=== PATIENT | female | born 1995 | race Hispanic/Latino ===

== ENCOUNTER 2017-09-03 17:32 | Outpatient (CLI) | payer MEDICAID | END 2017-09-03 18:20 | disposition home or self-care (01) | LOC: TRG 17:32 | PROVIDERS: ATTEND Obstetrics & Gynecology | DX: O47.1 False labor at or after 37 completed weeks of gestation (principal); Z3A.37 37 weeks gestation of pregnancy ==

== ENCOUNTER 2017-09-12 17:57 | Outpatient (CLI) | payer MEDICAID ==
[2017-09-12 18:58] VITALS: BP 98/55
== END 2017-09-12 19:15 | disposition home or self-care (01) ==
LOC: TRG 17:57
PROVIDERS: ATTEND Obstetrics & Gynecology
DX: O47.1 False labor at or after 37 completed weeks of gestation (principal); Z3A.39 39 weeks gestation of pregnancy
CPT/HCPCS: 59025

== ENCOUNTER 2017-09-21 13:10 | Outpatient (CLI) | payer MEDICAID ==
[2017-09-21 14:13] VITALS: BP 131/78
--- NOTE | 2017-09-21 15:19 | Ultrasound Report ---
ULTRASOUND BIOPHYSICAL PROFILE: History: well being Technique: Transabdominal ultrasound with Doppler interrogation. 2 - breathing movements 2 - movements 2 - posture and tone 2 - Qualitative amniotic fluid volume 8 - TOTAL SCORE OF POSSIBLE 8 Heart Rate (bpm) 137
--- NOTE | 2017-09-21 15:20 | Ultrasound Report ---
ULTRASOUND OB LIMITED History: well being Technique: Transabdominal ultrasound with Doppler interrogation. Gestation: Single Position: Cephalic Amniotic Fluid: Normal MELODY = 16.0 cm Heart Rate: 137 BPM
[2017-09-21 15:29] LABS: Bilirubin,Urine NEG (Negative); Blood,Urine NEG (Negative); Color,Urine Yellow (Yellow); Mucus,Urine FEW /HPF; Nitrite,Urine NEG (Negative); Protein,Urine <15 mg/dL mg/dL (Negative); RBC,Urine < 1.0 /HPF (0.0-6.0); Urobilinogen,Urine < 2.0 mg/dL (<2.0)
== END 2017-09-21 15:00 | disposition home or self-care (01) ==
LOC: TRG 13:10
PROVIDERS: ATTEND Obstetrics & Gynecology
DX: O48.0 Post-term pregnancy (principal); Z3A.40 40 weeks gestation of pregnancy
CPT/HCPCS: 59025; 76815; 76819; 81001

== ENCOUNTER 2017-09-23 14:33 | Outpatient (CLI) | payer MEDICAID ==
[2017-09-23 15:10] LABS: Bilirubin,Urine NEG (Negative); Blood,Urine MOD (Negative); Color,Urine Yellow (Yellow); Mucus,Urine FEW /HPF; Nitrite,Urine NEG (Negative); Protein,Urine <15 mg/dL mg/dL (Negative); Urobilinogen,Urine < 2.0 mg/dL (<2.0)
[2017-09-23 16:42] LABS: Hematocrit 36.5 % (30.3-42.9); Hemoglobin 12.1 gm/dl (10.1-14.3); Mean Corpuscular HGB Conc 33 % (30-34); Mean Corpuscular Hemoglobin 29 pg (28-32); Mean Corpuscular Volume 88 fl (79-97); Platelet Count 189 K/mm3 (140-440); Red Blood Count 4.16 M/mm3 (3.65-5.03); Red Cell Distribution Width 14.7 % (13.2-15.2)
[2017-09-23 17:02] LABS: Alanine Aminotransferase 13 units/L (7-56); Uric Acid 4.4 mg/dL (3.5-7.6)
[2017-09-23 17:25] VITALS: BP 151/83
== END 2017-09-23 18:00 | disposition home or self-care (01) ==
LOC: TRG 14:33
PROVIDERS: ATTEND Obstetrics & Gynecology
DX: O48.0 Post-term pregnancy (principal); Z3A.40 40 weeks gestation of pregnancy
CPT/HCPCS: 36415; 59025; 81001; 82565; 83615; 84450; 84460; 84550; 85027

== ENCOUNTER 2017-09-27 09:28 | Inpatient (IN) | payer MEDICAID ==
[2017-09-27] MEDS ORDERED: LACTATED RINGERS 1,000 ML ONE (10:16)
[2017-09-27] MEDS ORDERED: STADOL IV PRN (11:38)
[2017-09-27] MEDS ORDERED: LACTATED RINGERS 1,000 ML IV SCH ×2 (12:00→13:00)
[2017-09-27 12:04] LABS: Hematocrit 37.9 % (30.3-42.9); Hemoglobin 12.7 gm/dl (10.1-14.3); Mean Corpuscular HGB Conc 34 % (30-34); Mean Corpuscular Hemoglobin 29 pg (28-32); Mean Corpuscular Volume 87 fl (79-97); Platelet Count 196 K/mm3 (140-440); Red Blood Count 4.36 M/mm3 (3.65-5.03); Red Cell Distribution Width 14.7 % (13.2-15.2)
[2017-09-27] MEDS ORDERED: MINERAL OIL PO PRN (12:06)
[2017-09-27] MEDS ORDERED: XYLOCAINE 2% INFILTRATI ONE (12:06)
[2017-09-27] MEDS ORDERED: BRETHINE SUB-Q PRN (12:06)
[2017-09-27] MEDS ORDERED: BRETHINE IVP PRN (12:06)
[2017-09-27] MEDS ORDERED: ZOFRAN IV PRN ×2 (12:06→18:19)
[2017-09-27] MEDS ORDERED: NARCAN 0.4 MG/1 ML IV PRN (12:06)
[2017-09-27] MEDS ORDERED: SUBLIMAZE IV PRN (12:06)
[2017-09-27] MEDS ORDERED: POLYCILLIN/NS 2 GM/100 ML 2 GM/100 ML BAG IV ONE (12:06)
[2017-09-27] MEDS ORDERED: ePHEDrine SULFATE IV PRN ×2 (12:06→13:55)
--- NOTE | 2017-09-27 12:14 | History and Physical Report ---
History of Present Illness Date of examination: 09/27/17 Chief complaint: SROM History of present illness: Pt is a 21 yo WF EDC 09/19/17; EGA 41 1/7 weeks presents to L&D complaining of SROM @ 0800 followed by irregular contractions. She received care with Dr Silvestre , but transferred to [facility] last week. course has been unremarkable. records are available and GBS is Negative. Past History Past Medical History: no pertinent history Past Surgical History: tonsillectomy Family/Genetic History: none Social history: no significant social history, single - Obstetrical History Expected Date of Delivery: 09/19/17 Actual Gestation: 41 Week(s) 1 Day(s) : 1 Medications and Allergies Allergies Allergy/AdvReac Type Severity Reaction Status Date / Time No Known Allergies Allergy Verified 09/21/17 13:28 Home Medications Medication Instructions Recorded Confirmed Last Taken Type No Known Home Medications [No 09/03/17 09/21/17 Unknown History Reported Home Medications] Active Meds: Active Medications Butorphanol Tartrate (Stadol) 2 mg IV Q2H PRN PRN Reason: Labor Pain Ephedrine Sulfate (Ephedrine Sulfate) 10 mg IV Q2M PRN PRN Reason: Hypotension Fentanyl (Sublimaze) 100 mcg IV Q2H PRN PRN Reason: Labor Pain Lactated Ringer's (Lactated Ringers) 1,000 mls @ 125 mls/hr IV DIRECT KYLEE Ampicillin Sodium (Polycillin/Ns 1 Gm/50 Ml) 1 gm in 50 mls @ 100 mls/hr IV Q4HR KYLEE PRN Reason: Protocol Ampicillin Sodium (Polycillin/Ns 2 Gm/100 Ml) 2 gm in 100 mls @ 100 mls/hr IV ONCE ONE PRN Reason: Protocol Stop: 09/27/17 13:05 Lactated Ringer's (Lactated Ringers) 1,000 mls @ 125 mls/hr IV DIRECT KYLEE Oxytocin/Sodium Chloride (Pitocin/Ns 20 Unit/1000ml Drip) 20 units in 1,000 mls @ 125 mls/hr IV DIRECT KYLEE Oxytocin/Sodium Chloride (Pitocin/Ns 30 Unit/500ml) 30 units in 500 mls @ 4 mls /hr IV TITR KYLEE PRN Reason: Protocol Oxytocin/Sodium Chloride (Pitocin/Ns 30 Unit/500ml) 30 units in 500 mls @ 1 mls /hr IV TITR KYLEE; 1 MILLIUNITS/MIN PRN Reason: Protocol Lidocaine (Xylocaine 2%) 20 ml INFILTRATI ONCE ONE Stop: 09/27/17 12:07 Mineral Oil (Mineral Oil) 30 ml PO QHS PRN PRN Reason: Constipation Naloxone HCl (Narcan 0.4 Mg/1 Ml) 0.1 mg IV Q2MIN PRN PRN Reason: Res Rate </= 8 or 02 SAT < 92% Ondansetron HCl (Zofran) 4 mg IV Q8H PRN PRN Reason: Nausea And Vomiting Terbutaline Sulfate (Brethine) 0.25 mg SUB-Q ONCE PRN PRN Reason: Hyperstimulation/Hypertonicity Terbutaline Sulfate (Brethine) 0.25 mg IVP ONCE PRN PRN Reason: Hyperstimulation/Hypertonicity Review of Systems All systems: negative - Vital Signs Vital signs: Vital Signs Pulse Pulse Ox 76 100 09/27/17 09:48 09/27/17 09:48 Temp Pulse Resp BP Pulse Ox 73 99 09/27/17 10:49 09/27/17 10:49 - Physical Exam Breasts: Positive: deferred Cardiovascular: Regular rate Lungs: Positive: Clear to auscultation Abdomen: Positive: normal appearance Genitourinary (Female): Positive: normal external genitalia Uterus: Positive: enlarged Extremities: Positive: normal - Obstetrical FHR: category 1 Uterine Contraction Monitor Mode: External Cervical Dilatation: 2 Cervical Effacement Percentage: 50 station: -2 Results Result Diagrams: 09/27/17 11:48 Abnormal lab results 09/27/17 Range/Units 11:48 WBC 12.6 H (4.5-11.0) K/mm3 All other labs normal. Assessment and Plan - Patient Problems (1) 41 weeks gestation of Onset Date: 09/27/17 Current Visit: Yes Status: Acute Plan to address problem: A: IUP @ 41 1/7 weeks in labor P: Admit to L&D for expectant vaginal delivery
[2017-09-27] MEDS ORDERED: PITOCin/NS 30 UNIT/500ML 30 UNITS/500 ML BAG IV SCH ×2 (13:00)
[2017-09-27] MEDS ORDERED: PITOCin/NS 20 UNIT/1000ML DRIP 20 UNITS/1,000 ML BAG IV SCH ×2 (13:00→19:00)
[2017-09-27] MEDS ORDERED: NARCAN 2 MG/2 ML IV PRN (13:55)
[2017-09-27] MEDS ORDERED: fentaNYL-BUPIV 2 MCG/ML-0.125% 200 MCG/100 ML BAG EPIDURAL SCH (14:00)
[2017-09-27] MEDS ORDERED: NACL 0.9% 1000 ML 1,000 ML VG SCH (15:00)
[2017-09-27] MEDS ORDERED: NACL P/F VIAL (10 ML) 10 ML ONE (15:58)
[2017-09-27] MEDS ORDERED: AMPICILLIN/NS 1 GM/50 ML 1 GM/50 ML BAG IV SCH (16:08)
--- NOTE | 2017-09-27 18:17 | Procedure Note ---
OB Delivery Note - Delivery Date of Delivery: 09/27/17 Surgeon: KALLIE AMIN Estimated blood loss: 300cc - Vaginal Delivery presentation: vertex Delivery position: OA Intrapartum events: meconium, mult. late decelerations Delivery induction: none Delivery augmentation: rupture of membranes Delivery monitor: external FHT, internal uterine Route of delivery: vacuum extraction Indicators for instrumentation: nonreassuring FHR tracing Delivery placenta: spontaneous Delivery cord: nuchal cord (x1) Episiotomy: none Delivery laceration: 1st degree (bilateral labial) Delivery repair: vicryl Anesthesia: epidural Delivery comments: delivered OA with the aid of a vacuum, 1 pull, no pop-offs. Nuchal cord x 1 reduced and infant handed to awaiting Peds/RT in attendance. - A at 1 minute: 5 at 5 minutes: 9 Infant Gender: Male (3686gms)
[2017-09-27] MEDS ORDERED: TYLENOL PO PRN (18:19)
[2017-09-27] MEDS ORDERED: TUCKS PAD TP PRN (18:19)
[2017-09-27] MEDS ORDERED: LANSINOH TP PRN (18:19)
[2017-09-27] MEDS ORDERED: PHENERGAN PO PRN (18:19)
[2017-09-27] MEDS ORDERED: PHENERGAN PR PRN (18:19)
[2017-09-27] MEDS ORDERED: DULCOLAX PR PRN (18:19)
[2017-09-27] MEDS ORDERED: MILK OF MAGNESIA PO PRN (18:19)
[2017-09-27] MEDS ORDERED: BENADRYL PO PRN (18:19)
[2017-09-27] MEDS ORDERED: SODIUM CHLORIDE FLUSH SYRINGE 10 ML IV NR (19:00)
[2017-09-27] MEDS ORDERED: MOTRIN PO SCH (19:00)
[2017-09-27] MEDS: COLACE PO SCH (23:41)
[2017-09-27] MEDS: FEOSOL PO SCH (23:41)
[2017-09-28] MEDS: NORCO 5/325 PO PRN ×2 (00:50→16:00)
[2017-09-28] MEDS: MOTRIN PO SCH ×4 (05:30→23:25)
[2017-09-28] MEDS ORDERED: BOOSTRIX IM ONE ×2 (06:00→18:19)
[2017-09-28 06:19] LABS: Hematocrit 29.5 % (30.3-42.9); Hemoglobin 9.9 gm/dl (10.1-14.3)
--- NOTE | 2017-09-28 08:39 | Progress Note ---
Assessment and Plan - Patient Problems (1) 41 weeks gestation of Onset Date: 09/27/17 Current Visit: Yes Status: Resolved (2) (normal spontaneous vaginal delivery) Onset Date: 09/28/17 Current Visit: Yes Status: Resolved Plan to address problem: A: S/P - PPD #1 Doing well Asymptomatic anemia - stable P: May go home tomorrow. (3) Acute blood loss anemia Onset Date: 09/28/17 Current Visit: Yes Status: Resolved Subjective - Subjective Date of service: 09/28/17 Principal diagnosis: s/p - PPD #1 Interval history: Pt is feeling well without complaints. Bleeding improved. Patient reports: appetite normal, voiding normally, pain well controlled, flatus , ambulating normally, no nauseated : doing well, nursing well, bottle feeding Objective - Vital Signs Latest vital signs: Vital Signs Temp Pulse Resp BP BP Pulse Ox 09/28/17 04:30 98.7 F 77 18 114/79 09/28/17 00:00 98.7 F 78 18 102/68 09/27/17 21:00 99.9 F H 16 L 18 130/73 09/27/17 19:27 76 144/75 09/27/17 19:14 88 127/69 09/27/17 19:12 81 178/85 09/27/17 18:57 88 178/92 09/27/17 18:42 84 168/79 09/27/17 18:27 84 177/87 09/27/17 18:15 99.7 F H 20 09/27/17 18:13 82 98 09/27/17 18:12 92 H 131/70 09/27/17 18:09 80 132/68 09/27/17 18:08 83 99 09/27/17 18:03 81 100 09/27/17 18:00 95 H 91 09/27/17 17:58 76 100 09/27/17 17:57 73 137/64 09/27/17 17:53 100 09/27/17 17:47 78 100 09/27/17 17:43 88 139/78 09/27/17 17:42 85 100 09/27/17 17:37 74 100 09/27/17 17:32 83 100 09/27/17 17:27 77 140/82 99 09/27/17 17:22 90 98 09/27/17 17:17 97 H 99 09/27/17 17:12 88 131/84 99 09/27/17 17:07 89 98 09/27/17 17:06 99.8 F H 20 09/27/17 17:02 84 100 09/27/17 16:58 81 117/62 09/27/17 16:57 81 100 09/27/17 16:52 85 100 09/27/17 16:47 65 100 09/27/17 16:42 80 115/61 100 09/27/17 16:37 65 100 09/27/17 16:32 68 100 09/27/17 16:27 67 119/59 99 09/27/17 16:22 69 98 09/27/17 16:17 74 99 09/27/17 16:13 68 122/63 09/27/17 16:12 71 98 09/27/17 16:07 73 100 09/27/17 16:02 69 99 09/27/17 15:58 65 131/69 09/27/17 15:57 65 99 09/27/17 15:52 68 99 09/27/17 15:47 76 96 09/27/17 15:44 99.3 F 20 09/27/17 15:42 70 135/71 98 09/27/17 15:37 70 98 09/27/17 15:32 67 98 09/27/17 15:27 68 131/64 99 09/27/17 15:22 74 99 09/27/17 15:17 74 99 09/27/17 15:12 66 129/64 100 09/27/17 15:11 81 L 09/27/17 15:07 70 100 09/27/17 15:02 73 100 09/27/17 14:57 71 100 09/27/17 14:56 70 135/80 09/27/17 14:54 79 140/79 09/27/17 14:52 70 140/81 100 09/27/17 14:50 65 138/78 09/27/17 14:48 71 137/80 09/27/17 14:47 74 100 09/27/17 14:46 87 143/76 09/27/17 14:44 79 142/76 09/27/17 14:43 82 123/61 09/27/17 14:42 82 98 09/27/17 14:40 73 142/77 09/27/17 14:38 73 136/74 09/27/17 14:37 119 H 92 09/27/17 14:35 82 0 L 09/27/17 14:34 70 129/68 09/27/17 14:32 75 134/63 09/27/17 14:31 72 135/73 09/27/17 14:29 81 112/55 09/27/17 14:26 79 129/68 91 09/27/17 14:24 68 146/77 09/27/17 14:22 73 139/72 09/27/17 14:21 78 143/71 09/27/17 14:20 98.0 F 85 20 96 09/27/17 14:18 73 134/68 09/27/17 14:16 62 143/79 09/27/17 14:15 68 97 09/27/17 14:14 70 141/68 09/27/17 14:12 83 141/65 09/27/17 14:10 75 98 09/27/17 14:08 83 159/73 09/27/17 14:05 79 98 09/27/17 13:53 90 140/102 09/27/17 13:23 76 185/104 09/27/17 12:22 75 145/95 09/27/17 12:19 75 152/92 09/27/17 10:49 73 99 09/27/17 10:44 69 99 09/27/17 10:39 63 99 09/27/17 10:34 73 100 09/27/17 10:29 65 96 09/27/17 10:23 77 99 09/27/17 10:18 76 99 09/27/17 10:13 73 99 09/27/17 10:08 82 98 09/27/17 10:03 75 100 09/27/17 10:01 74 91 09/27/17 09:58 72 99 09/27/17 09:53 81 99 09/27/17 09:48 76 100 Intake and Output 09/27/17 09/28/17 09/28/17 22:59 06:59 14:59 Intake Total 300 600 Output Total 700 900 Balance -400 -300 Intake: Intake, Free Water 300 600 Output: Urine 700 900 Indwelling Catheter 100 Void 600 900 Other: Total, Output Amount 600 500 Estimated Blood Loss 300 - Exam Breasts: Present: deferred Cardiovascular: Present: Regular rate Lungs: Present: Clear to auscultation Abdomen: Present: normal appearance, soft Uterus: Present: normal, firm, fundal height below umbilicus Extremities: Present: normal - Labs Labs: Abnormal lab results 09/27/17 09/28/17 Range/Units 11:48 05:36 WBC 12.6 H (4.5-11.0) K/mm3 Hgb 9.9 L (10.1-14.3) gm/dl Hct 29.5 L D (30.3-42.9) % Laboratory Tests 09/27/17 09/27/17 09/28/17 11:48 11:48 05:36 WBC 12.6 H RBC 4.36 Hgb 12.7 9.9 L Hct 37.9 29.5 L D MCV 87 MCH 29 MCHC 34 RDW 14.7 Plt Count 196 Blood Type B POSITIVE Antibody Screen Negative
--- NOTE | 2017-09-28 09:03 | Discharge Summary ---
Providers - Providers Date of Admission: 09/27/17 09:29 Date of discharge: 09/29/17 Attending physician: KALLIE AMIN Primary care physician: KALLIE AMIN Hospitalization Reason for admission: active labor, IUP at term Delivery: vacuum extraction Episiotomy: none Laceration: 1st degree Other procedures: none complications: none Discharge diagnosis: IUP at term delivered baby: male Hospital course: Unremarkable. Condition at discharge: Good Disposition: DC-01 TO HOME OR SELFCARE - Discharge Diagnoses (1) 41 weeks gestation of Status: Resolved (2) (normal spontaneous vaginal delivery) Status: Resolved (3) Acute blood loss anemia Status: Resolved Plan - Discharge Medications Prescriptions: Ferrous Sulfate [Feosol 325 MG tab] 325 mg PO BID #60 tablet HYDROcodone/APAP 5-325 [[place] 5-325 mg TAB] 1 each PO Q6H PRN #10 tablet PRN Reason: Pain, Moderate (4-6) Ibuprofen [Motrin 600 MG tab] 600 mg PO Q6H #30 tablet Vit-Fe Fumar-FA [ Vitamin] 1 each PO QDAY #30 tablet - Provider Discharge Summary Activity: routine, no sex for 6 weeks, no heavy lifting 4 weeks, no strenuous exercise Diet: routine Instructions: routine Additional instructions: [] Smoking cessation referral if applicable(refer to patient education folder for contact #) [] Refer to [facility] Booklet Call your doctor immediately for: * Fever > 100.5 * Heavy vaginal bleeding ( >1 pad per hour) * Severe persistent headache * Shortness of breath * Reddened, hot, painful area to leg or breast * Drainage or odor from incision. * Keep incision clean and dry at all times and follow doctor's instructions regarding bathing/showering - Follow up plan Follow up: KALLIE AMIN MD [Primary Care Provider] - 6 Weeks
[2017-09-28] MEDS: FEOSOL PO SCH ×2 (10:00→23:25)
[2017-09-28] MEDS ORDERED: PRENATAL VITAMIN PO SCH (10:00)
[2017-09-28] MEDS: COLACE PO SCH ×2 (10:10→23:25)
[2017-09-28] MEDS ORDERED: M-M-R II VACCINE SUB-Q ONE (18:19)
[2017-09-29] MEDS: MOTRIN PO SCH (05:00)
[2017-09-29 15:11] VITALS: BP 138/76
== END 2017-09-29 15:40 | disposition home or self-care (01) | DRG 775 ==
LOC: TRG 09:28 → LD 09:29 → TRG 09:30 → OB 20:55
PROVIDERS: ADMIT Obstetrics & Gynecology; ATTEND Obstetrics & Gynecology
PROC: 10D07Z6 Extraction of Products of Conception, Vacuum, Via Natural or Artificial Opening (ICD-10-PCS; principal; 2017-09-27)
PROC: 0HQ9XZZ Repair Perineum Skin, External Approach (ICD-10-PCS; 2017-09-27)
PROC: 3E0R3BZ Introduction of Anesthetic Agent into Spinal Canal, Percutaneous Approach (ICD-10-PCS; 2017-09-27)
PROC: 00HU33Z Insertion of Infusion Device into Spinal Canal, Percutaneous Approach (ICD-10-PCS; 2017-09-27)
PROC: 3E0234Z Introduction of Serum, Toxoid and Vaccine into Muscle, Percutaneous Approach (ICD-10-PCS; 2017-09-28)
DX: O77.0 Labor and delivery complicated by meconium in amniotic fluid (principal); Z3A.41 41 weeks gestation of pregnancy; Z37.0 Single live birth; O69.81X0 Labor and delivery complicated by cord around neck, without compression, not applicable or unspecified; O76 Abnormality in fetal heart rate and rhythm complicating labor and delivery; O70.0 First degree perineal laceration during delivery; Z23 Encounter for immunization; Z90.89 Acquired absence of other organs; O90.81 Anemia of the puerperium; D62 Acute posthemorrhagic anemia
CPT/HCPCS: 36415; 85014; 85018; 85027; 86592; 86850; 86900; 86901; 88307; 90471; 90715; 99211; A6250; G0463; J0595; J2590; J7030; J7120